=== PATIENT | female | born 1930 | race Caucasian/White ===

== ENCOUNTER 2018-06-25 09:08 | Inpatient (IN) ==
[2018-06-25] MEDS ORDERED: 0.9 % SODIUM CHLORIDE 1,000 ML IV ONE (09:40)
[2018-06-25] MEDS ORDERED: ACETAMINOPHEN 325 MG TABLET PO ONE (09:44)
--- NOTE | 2018-06-25 09:53 | Emergency Department Note ---
General Adult HPI - General Chief complaint: Weakness Stated complaint: weakness, UTI Time Seen by Provider: 06/25/18 09:36 Source: family Mode of arrival: wheelchair - History of Present Illness HPI Narrative: This patient was diagnosed yesterday in the minor care clinic with a UTI and started on Cipro. However today she has a fever and is confused and very weak and having difficulty walking on her own according to family. She did take her Cipro this morning. She denies cough shortness of breath chest pain abdominal pain nausea vomiting diarrhea. - Related Data Home Medications Medication Instructions Recorded Confirmed acetaminophen ER 650 mg 650 mg PO Q8H PRN tab 03/10/18 06/25/18 tablet,extended release allopurinol 100 mg tablet 100 mg PO QDAY 03/10/18 06/25/18 amlodipine 5 mg tablet 5 mg PO QDAY 03/10/18 06/25/18 aspirin 81 mg tablet,delayed 81 mg PO QDAY 03/10/18 06/25/18 release atorvastatin 20 mg tablet 20 mg PO QDAY 03/10/18 06/25/18 dorzolamide 22.3 mg-timolol 6.8 1 drp OPHTHALMIC BID 03/10/18 06/25/18 mg/mL eye drops [id number] C-Mn 500 cap PO 03/10/18 06/24/18 mg-400 mg capsule latanoprost 0.005 % eye drops 1 drp OPHTHALMIC QPM 03/10/18 06/25/18 losartan 50 mg tablet 50 mg PO BID tab 03/10/18 06/25/18 mirtazapine 15 mg tablet 30 mg PO QHS tab 03/10/18 06/25/18 multivitamin tablet 1 tab PO QDAY 03/10/18 06/25/18 nortriptyline 10 mg capsule 10 mg PO QHS 03/10/18 06/25/18 omeprazole magnesium 20 mg 20 mg PO QDAY 03/10/18 06/25/18 tablet,delayed release propranolol ER 60 mg capsule,24 120 mg PO QAM cap 03/10/18 06/25/18 hr,extended release furosemide 20 mg tablet 20 mg PO QDAY tab 03/11/18 06/25/18 triamcinolone acetonide 0.1 % 1 applic TOPICAL BID PRN 03/11/18 06/25/18 topical ointment Previous Rx's Medication Instructions Recorded ciprofloxacin 250 mg tablet 250 mg PO Q12H 7 Days #14 tab 06/24/18 Allergies Allergy/AdvReac Type Severity Reaction Status Date / Time lohexol Allergy Severe Unknown Uncoded 06/24/18 10:47 diyclomine Allergy Unknown Unknown Uncoded 06/24/18 10:47 Review of Systems All systems ED: reviewed and negative except as stated. Past Medical History - Past Medical History [facility] Narrative: Medical History (Last Reviewed 06/24/18 @ 11:23 by Janeth Quick DO) Dermatitis (Chronic) PITTMAN (dyspnea on exertion) (Chronic) Dependent edema (Chronic) Primary open angle glaucoma of both eyes, mild stage (Chronic) Combined form of age-related cataract, left eye (Chronic) Nuclear sclerotic cataract of right eye (Chronic) Chest pain, unspecified (Chronic) Malignant melanoma of arm (Chronic) Urge urinary incontinence (Chronic) Recurrent major depressive disorder (Chronic) Malignant melanoma of skin (Chronic) Osteopenia (Chronic) Osteoarthritis (Chronic) Impaired fasting glucose (Chronic) Hyperlipidemia, unspecified (Chronic) Essential hypertension (Chronic) Degenerative arthritis of spine (Chronic) Cognitive impairment (Chronic) Benign essential tremor (Chronic) Stomach ulcer (Chronic) Osteoporosis (Chronic) Chronic kidney disease, stage 4 (severe) (Chronic) Joint pain (Chronic) Insomnia (Chronic) High cholesterol (Chronic) High blood pressure (Chronic) Heart trouble (Chronic) Gout (Chronic) Depression (Chronic) Skin cancer (Chronic) Arthritis (Chronic) Anxiety (Chronic) Acid reflux (Chronic) H/O: hysterectomy (Chronic) Past Surgical History (Last Reviewed 04/24/18 @ 11:53 by Kelsey Thakur PA-C) History of surgery on arm (Chronic) No pertinent past surgical history (Chronic) Family History (Last Reviewed 04/24/18 @ 11:53 by Kelsey Thakur PA-C) Other No pertinent family history - Social History smoking status: Never smoker Physical Exam Limitations: no limitations General appearance: alert Head: atraumatic Eye: Present: normal appearance ENT: normal exam Neck: Present: normal inspection Chest: Present: normal inspection Respiratory: Present: normal lung sounds bilaterally Cardiovascular: Present: regular rate, normal rhythm, normal heart sounds Abdominal: Present: soft. Absent: distention, tenderness Neurological: Present: alert Psychiatric: Present: normal affect Skin: Present: warm, dry Course Vital Signs Temperature 101.1 F H 06/25/18 09:09 Pulse Rate 92 H 06/25/18 09:09 Blood Pressure 118/71 06/25/18 09:09 Pulse Oximetry (%) 92 06/25/18 09:09 Temperature 99.0 F 06/25/18 10:54 Pulse Rate 83 06/25/18 10:05 Respiratory Rate 21 06/25/18 11:47 Blood Pressure 127/59 06/25/18 11:47 Pulse Oximetry (%) 93 06/25/18 10:05 Medical Decision Making - MDM Narrative Medical decision making narrative: I discussed this case with the hospitalist and because of the confusion and weakness the patient will be admitted observation to the hospital. - Lab Data Lab results reviewed: Yes I reviewed the patient's lab results. Result diagrams: 06/25/18 09:51 06/25/18 09:51 Lab Results 06/25/18 06/25/18 06/25/18 Range/Units 09:50 09:51 09:51 WBC 10.4 (4.5-11.0) K/mcL RBC 3.66 L (4.00-5.20) M/mcL Hgb 11.6 L (12.0-15.0) g/dL Hct 34.7 L (36.0-48.0) % MCV 94.8 (80.0-100.0) fL MCH 31.7 (26.0-34.0) pg MCHC 33.4 (31.0-36.0) g/dL RDW 12.4 (11.5-14.5) % Plt Count 236 (140-440) K/mcL MPV 8.4 (7.4-10.4) fL Gran % 88.3 H (38.0-78.0) % Lymph % (Auto) 4.9 L (15.5-49.0) % Clark % (Auto) 6.6 (1.0-12.0) % Eos % (Auto) 0 (0.0-7.0) % Baso % (Auto) 0.2 (0.0-2.0) % Gran # 9.2 H (1.8-8.0) K/mcL Lymph # (Auto) 0.5 L (1.5-4.8) K/mcL Clark # (Auto) 0.7 (0.1-0.9) K/mcL Eos # (Auto) 0 (0.0-0.7) K/mcL Baso # (Auto) 0 (0.0-0.3) K/mcL VBG Lactic Acid (0.5-2.0) mmol/L Sodium 140 (133-145) mmol/L Potassium 3.6 (3.3-5.1) mmol/L Chloride 106 (96-108) mmol/L Carbon Dioxide 22 (22-30) mmol/L Anion Gap 12.0 (8-16) BUN 26 H (8-23) mg/dl Creatinine 1.3 H (0.6-1.1) mg/dl GFR Calculation 36 Glucose 138 H (70-105) mg/dL Calcium 9.3 (8.6-10.4) mg/dl Total Bilirubin 0.4 (0.0-1.0) mg/dL AST 31 (0-37) U/l ALT 21 (0-40) U/l Alkaline Phosphatase 107 (39-117) U/L C-Reactive Protein 10.5 H (0.0-0.8) mg/dl Total Protein 7.0 (5.9-8.4) gm/dL Albumin 3.6 (3.2-5.2) gm/dL Globulin 3.4 (2.2-3.7) gm/dL Albumin/Globulin Ratio 1.1 (1.0-2.3) Procalcitonin 1.20 (<0.10) ng/mL Urine Color Urine Appearance Urine pH (5.0-9.0) Ur Specific [place] (1.000-1.035) Urine Protein (NEG) mg/dL Urine Glucose (UA) (NEG) mg/dL Urine Ketones (NEG) mg/dL Urine Occult Blood (<0.03) mg/dL Urine Nitrate (NEG) Urine Bilirubin (NEG) mg/dL Urine Urobilinogen (NEG) mg/dL Ur Leukocyte Esterase (NEG) /uL Urine RBC (0-1) /hpf Urine WBC (0-4) /hpf Ur Squamous Epith Cells (0-4) /hpf Urine Bacteria (0) /hpf Ur Culture Indicated? 06/25/18 06/25/18 Range/Units 09:51 09:51 WBC (4.5-11.0) K/mcL RBC (4.00-5.20) M/mcL Hgb (12.0-15.0) g/dL Hct (36.0-48.0) % MCV (80.0-100.0) fL MCH (26.0-34.0) pg MCHC (31.0-36.0) g/dL RDW (11.5-14.5) % Plt Count (140-440) K/mcL MPV (7.4-10.4) fL Gran % (38.0-78.0) % Lymph % (Auto) (15.5-49.0) % Clark % (Auto) (1.0-12.0) % Eos % (Auto) (0.0-7.0) % Baso % (Auto) (0.0-2.0) % Gran # (1.8-8.0) K/mcL Lymph # (Auto) (1.5-4.8) K/mcL Clark # (Auto) (0.1-0.9) K/mcL Eos # (Auto) (0.0-0.7) K/mcL Baso # (Auto) (0.0-0.3) K/mcL VBG Lactic Acid 1.3 (0.5-2.0) mmol/L Sodium (133-145) mmol/L Potassium (3.3-5.1) mmol/L Chloride (96-108) mmol/L Carbon Dioxide (22-30) mmol/L Anion Gap (8-16) BUN (8-23) mg/dl Creatinine (0.6-1.1) mg/dl GFR Calculation Glucose (70-105) mg/dL Calcium (8.6-10.4) mg/dl Total Bilirubin (0.0-1.0) mg/dL AST (0-37) U/l ALT (0-40) U/l Alkaline Phosphatase (39-117) U/L C-Reactive Protein (0.0-0.8) mg/dl Total Protein (5.9-8.4) gm/dL Albumin (3.2-5.2) gm/dL Globulin (2.2-3.7) gm/dL Albumin/Globulin Ratio (1.0-2.3) Procalcitonin (<0.10) ng/mL Urine Color Yellow Urine Appearance Clear Urine pH 5.0 (5.0-9.0) Ur Specific [place] 1.015 (1.000-1.035) Urine Protein Neg (NEG) mg/dL Urine Glucose (UA) Negative (NEG) mg/dL Urine Ketones Neg (NEG) mg/dL Urine Occult Blood Neg (<0.03) mg/dL Urine Nitrate Neg (NEG) Urine Bilirubin Neg (NEG) mg/dL Urine Urobilinogen Neg (NEG) mg/dL Ur Leukocyte Esterase 25 A (NEG) /uL Urine RBC 2 H (0-1) /hpf Urine WBC 34 H (0-4) /hpf Ur Squamous Epith Cells < 1 (0-4) /hpf Urine Bacteria 0 (0) /hpf Ur Culture Indicated? Yes - Radiology Data Radiology results reviewed: Yes I reviewed the patient's radiology results. Disposition Pt seen by [facility]/PA only: No Clinical Impression: UTI (urinary tract infection) Disposition: Xfer As Outpt/Obs ([facility]) Condition: Good Referrals: Kelsey Thakur PA-C [Primary Care Provider] - Time of Disposition: 12:27
--- NOTE | 2018-06-25 09:59 | XRay Report ---
INDICATION: Dyspnea TECHNIQUE: AP chest x-ray,portable upright COMPARISON: None FINDINGS:Mildly elevated right hemidiaphragm. Lungs are negative. No parenchymal infiltrate or mass. No focal abnormality. Heart size and vascularity are normal. Jyotsna and mediastinum are negative. No pleural fluid IMPRESSION: 1. Mildly elevated right hemidiaphragm 2. Otherwise negative AP portable chest x-ray Interpreted and Authenticated by: Jeff Prieto 06/25/18
[2018-06-25 10:17] LABS: Basophils # (Auto) 0 K/mcL (0.0-0.3); Basophils % (Auto) 0.2 % (0.0-2.0); Eosinophils # (Auto) 0 K/mcL (0.0-0.7); Eosinophils % (Auto) 0 % (0.0-7.0); Granulocytes % (Auto) 88.3 % (38.0-78.0); Lymphocytes # (Auto) 0.5 K/mcL (1.5-4.8); Lymphocytes % (Auto) 4.9 % (15.5-49.0); Mean Cell Volume 94.8 fL (80.0-100.0); Mean Corpuscular HGB Conc 33.4 g/dL (31.0-36.0); Monocytes # (Auto) 0.7 K/mcL (0.1-0.9); Monocytes % (Auto) 6.6 % (1.0-12.0); Platelet Count 236 K/mcL (140-440); RBC 3.66 M/mcL (4.00-5.20); Red Cell Distribution Width 12.4 % (11.5-14.5)
[2018-06-25 10:23] LABS: Appearance,Urine CLEAR; Bacteria,Urine 0 /hpf (0); Bilirubin,Urine NEG (NEG); Color,Urine YELLOW; Glucose,Urine (UA) NEGATIVE (NEG); Leukocyte Esterase,Urine 25 /uL (NEG); Protein,Urine NEG (NEG); Specific Gravity,Urine 1.015 (1.000-1.035); Urine Blood NEG mg/dL (<0.03); Urine RBC 2 /hpf (0-1); Urine Squamous Epithelial Cell < 1 /hpf (0-4); Urine WBC 34 /hpf (0-4); Urobilinogen,Urine NEG (NEG)
[2018-06-25 10:36] LABS: ALT/SGPT 21 U/l (0-40); Albumin 3.6 gm/dL (3.2-5.2); Albumin/Globulin Ratio 1.1 (1.0-2.3); Alkaline Phosphatase 107 U/L (39-117); Blood Urea Nitrogen 26 mg/dl (8-23); C-Reactive Protein 10.5 mg/dl (0.0-0.8)
--- NOTE | 2018-06-25 12:16 | Cat Scan Report ---
CLINICAL INFORMATION: Confusion COMPARISON: None. TECHNIQUE: Axial noncontrast-enhanced images through the brain. FINDINGS: No acute intracranial hemorrhage. No intra-axial hematoma. No localized mass effect. No midline shift. No acute abnormality. There is age-appropriate cerebral atrophy. There is white matter abnormality consistent with small vessel ischemic change. Brainstem and cerebellum are negative. No extra-axial, intracranial abnormality. No subdural hematoma. No subarachnoid hemorrhage. Basilar cisterns are normal. No hyperdense middle cerebral artery sign. No calvarial fracture. No lytic lesion. Temporal bones are negative IMPRESSION: 1. Age-appropriate cerebral atrophy. White matter abnormality consistent with small vessel ischemic change 2. No acute abnormality The exam was performed using radiation dose optimization techniques including, but not limited to, automated exposure control, adjustment of the mA and/or kV according to patient size and use of iterative reconstruction technique. Interpreted and Authenticated by: Jeff Prieto 06/25/18
[2018-06-25] MEDS ORDERED: LACTATED RINGERS 1,000 ML IV SCH ×2 (12:30→14:14)
--- NOTE | 2018-06-25 13:29 | Internal Med History&Physical ---
Medical - H&P: [facility] Patient information: Note initiated : 06/25/18 at 1:26 pm Service Date, if different from initiated Date: [] Patient: Sandra Valle a 87 y/o F admitted on for Weakness, UTI. Chief Complaint: [] History of present illness: Ms. Valle is a 87 year old F Who presents after fevers chills confusion. She was seen at [facility] yesterday because she had increasing confusion more than usual and weak and she was diagnosed with a urinary tract infection and was given Cipro upon discharge. She took several dose of Cipro. Today she brought in the ER because she seemed very shaky and was unable to move around without assistance and to develop a fever. In the ER she is found to be febrile with urine showed leukocyte esterase and WBCs. She had an elevated pro-calcitonin. Lactate was within normal limits. And renal function worse than normal. CT brain was unremarkable. Sounds like she has dementia per history obtained from family, son-in-law. And her daughter is the POA. Family reports continued and progressive decline in memory and cognition. She complains of weakness and chills, no chest pain shortness of breath abdominal pain or diarrhea. Review of Systems: Pertinent positives as above. Denies headache/fever/nausea/vomiting/chest or abdominal pain/cough/dyspnea/diarrhea. Many 10 point review of systems reviewed negative Medical - H&P: [facility] Medical history: Medical History (Last Reviewed 06/24/18 @ 11:23 by Janeth Quick DO) Dermatitis (Chronic) PITTMAN (dyspnea on exertion) (Chronic) Dependent edema (Chronic) Primary open angle glaucoma of both eyes, mild stage (Chronic) Combined form of age-related cataract, left eye (Chronic) Nuclear sclerotic cataract of right eye (Chronic) Chest pain, unspecified (Chronic) Malignant melanoma of arm (Chronic) Urge urinary incontinence (Chronic) Recurrent major depressive disorder (Chronic) Malignant melanoma of skin (Chronic) Osteopenia (Chronic) Osteoarthritis (Chronic) Impaired fasting glucose (Chronic) Hyperlipidemia, unspecified (Chronic) Essential hypertension (Chronic) Degenerative arthritis of spine (Chronic) Cognitive impairment (Chronic) Benign essential tremor (Chronic) Stomach ulcer (Chronic) Osteoporosis (Chronic) Chronic kidney disease, stage 4 (severe) (Chronic) Joint pain (Chronic) Insomnia (Chronic) High cholesterol (Chronic) High blood pressure (Chronic) Heart trouble (Chronic) Gout (Chronic) Depression (Chronic) Skin cancer (Chronic) Arthritis (Chronic) Anxiety (Chronic) Acid reflux (Chronic) H/O: hysterectomy (Chronic) Past Surgical History (Last Reviewed 04/24/18 @ 11:53 by Kelsey Thakur PA-C) History of surgery on arm (Chronic) No pertinent past surgical history (Chronic) Family History (Last Reviewed 04/24/18 @ 11:53 by Kelsey Thakur PA-C) Other Father had cancer mother history unknown Social History (Last Updated 06/24/18 @ 13:06 by Janeth Quick DO) Denies alcohol use drinks alcohol rarely embolus with a walk[facility] family has been looking at getting her ov er to the assisted living side Medical - H&P: Meds Home Medications Medication Instructions Recorded Confirmed Type acetaminophen ER 650 mg 650 mg PO Q8H PRN tab 03/10/18 06/25/18 History tablet,extended release allopurinol 100 mg tablet 100 mg PO QDAY 03/10/18 06/25/18 History amlodipine 5 mg tablet 5 mg PO QDAY 03/10/18 06/25/18 History aspirin 81 mg tablet,delayed 81 mg PO QDAY 03/10/18 06/25/18 History release atorvastatin 20 mg tablet 20 mg PO QDAY 03/10/18 06/25/18 History dorzolamide 22.3 mg-timolol 6.8 1 drp OPHTHALMIC BID 03/10/18 06/25/18 History mg/mL eye drops [id number] C-Mn 500 cap PO 03/10/18 06/24/18 History mg-400 mg capsule latanoprost 0.005 % eye drops 1 drp OPHTHALMIC QPM 03/10/18 06/25/18 History losartan 50 mg tablet 50 mg PO BID tab 03/10/18 06/25/18 History mirtazapine 15 mg tablet 30 mg PO QHS tab 03/10/18 06/25/18 History multivitamin tablet 1 tab PO QDAY 03/10/18 06/25/18 History nortriptyline 10 mg capsule 10 mg PO QHS 03/10/18 06/25/18 History omeprazole magnesium 20 mg 20 mg PO QDAY 03/10/18 06/25/18 History tablet,delayed release propranolol ER 60 mg capsule,24 120 mg PO QAM cap 03/10/18 06/25/18 History hr,extended release furosemide 20 mg tablet 20 mg PO QDAY tab 03/11/18 06/25/18 History triamcinolone acetonide 0.1 % 1 applic TOPICAL BID PRN 03/11/18 06/25/18 History topical ointment ciprofloxacin 250 mg tablet 250 mg PO Q12H 7 Days #14 tab 06/24/18 06/25/18 Rx Allergies Allergy/AdvReac Type Severity Reaction Status Date / Time lohexol Allergy Severe Unknown Uncoded 06/24/18 10:47 diyclomine Allergy Unknown Unknown Uncoded 06/24/18 10:47 Medical - H&P: Exam - Constitutional Vitals: Temp Pulse Resp BP Pulse Ox 98.2 F 66 19 102/54 91 06/25/18 13:10 06/25/18 13:01 06/25/18 13:01 06/25/18 13:01 06/25/18 13:01 Exam: General: Alert, Awake, No acute Distress, obese Eyes/N/T: EOMI, PEERL, DMM Head/Neck: neck supple, normocephalic atraumatic CV: RRR, No murmurs, normal s1/s2 Pulm: Clear b/l, no wheezing/rhonchi/rales Abd: soft, nontender, +BS x4 Ext: no clubbing/cyanosis/edema Neuro: Alert, no focal deficits, moves all extremities, CN 2-12 grossly intact, symmetrical strength b/l upper/lower, sensations intact b/l upper/lower Skin: warm/dry Medical - H&P: Reslt - Labs CBC & Chem 7: 06/25/18 09:51 06/25/18 09:51 Labs: Short CBC 06/25/18 Range/Units 09:51 WBC 10.4 (4.5-11.0) K/mcL Hgb 11.6 L (12.0-15.0) g/dL Hct 34.7 L (36.0-48.0) % Plt Count 236 (140-440) K/mcL BMP 06/25/18 09:51 Sodium 140 Potassium 3.6 Chloride 106 Carbon Dioxide 22 BUN 26 H Creatinine 1.3 H Glucose 138 H Calcium 9.3 Liver Function 06/25/18 Range/Units 09:51 Total Bilirubin 0.4 (0.0-1.0) mg/dL AST 31 (0-37) U/l ALT 21 (0-40) U/l Alkaline Phosphatase 107 (39-117) U/L Albumin 3.6 (3.2-5.2) gm/dL Urine 06/25/18 Range/Units 09:51 Urine Color Yellow Urine Appearance Clear Urine pH 5.0 (5.0-9.0) Ur Specific [place] 1.015 (1.000-1.035) Urine Protein Neg (NEG) mg/dL Urine Glucose (UA) Negative (NEG) mg/dL - Impressions Chest x-ray unremarkable CT brain with cerebral atrophy and small vessel ischemic change Medical - H&P: A/P - Narrative A/P Narrative: A: *UTI: *Sepsis: *QUEENIE on CKD III: Secondary to above *Anemia of CD: *HTN/HLD: *Dementia: *essential tremor *GERD/PUD *Depression/Anxiety * P: -IVF's -rocephin, pending UC -f/u renal fxn, monitor UOP -hold losartan and lasix for queenie -cont norvasc - -pt/ot -ppx: heparin/pepcid
[2018-06-25] MEDS ORDERED: ONDANSETRON 4 MG/2 ML VIAL IV PRN (14:14)
[2018-06-25] MEDS ORDERED: cefTRIAXone 1 GM in DEXTROSE 5% IN WATER 50 ML IV SCH (14:14)
[2018-06-25] MEDS ORDERED: NON FORMULARY MEDICATION 1 DOSE MISCELL (Acetaminophen [Acetaminophen Er] 650 MG) PO PRN (14:14)
[2018-06-25] MEDS ORDERED: ACETAMINOPHEN 325 MG TABLET PO PRN (14:14)
[2018-06-25] MEDS: cefTRIAXone 1 GM VIAL IV SCH (16:38)
[2018-06-25] MEDS: 0.9 % SODIUM CHLORIDE 10 ML SYRINGE IV SCH ×2 (16:38→22:31)
[2018-06-25] MEDS ORDERED: diphenhydrAMINE 25 MG CAPSULE PO SCH (21:00)
[2018-06-25] MEDS: HEPARIN 5,000 UNIT/ML VIAL SQ SCH (22:21)
[2018-06-25] MEDS: NORTRIPTYLINE 10 MG CAPSULE PO SCH (22:22)
[2018-06-25] MEDS: DOCUSATE SODIUM 100 MG CAPSULE PO SCH (22:22)
[2018-06-25] MEDS: MIRTAZAPINE 15 MG TABLET PO SCH (22:22)
[2018-06-25] MEDS: LATANOPROST OPHTH DROPS 2.5ML BOTTLE OU SCH (22:26)
[2018-06-25] MEDS: Dorzolamide Hcl/Timolol Maleat [Cosopt Eye Drops] OU SCH (22:30)
[2018-06-26 05:48] LABS: Basophils # (Auto) 0 K/mcL (0.0-0.3); Basophils % (Auto) 0.2 % (0.0-2.0); Eosinophils # (Auto) 0.1 K/mcL (0.0-0.7); Eosinophils % (Auto) 0.8 % (0.0-7.0); Granulocytes % (Auto) 76.3 % (38.0-78.0); Lymphocytes # (Auto) 1.1 K/mcL (1.5-4.8); Lymphocytes % (Auto) 12.4 % (15.5-49.0); Mean Cell Volume 94.5 fL (80.0-100.0); Mean Corpuscular HGB Conc 34.4 g/dL (31.0-36.0); Monocytes # (Auto) 0.9 K/mcL (0.1-0.9); Monocytes % (Auto) 10.3 % (1.0-12.0); Platelet Count 217 K/mcL (140-440); Red Cell Distribution Width 12.7 % (11.5-14.5)
[2018-06-26 06:18] LABS: ALT/SGPT 20 U/l (0-40); Albumin 3.1 gm/dL (3.2-5.2); Albumin/Globulin Ratio 1.1 (1.0-2.3); Alkaline Phosphatase 88 U/L (39-117); Bilirubin,Direct < 0.2 mg/dL (0.0-0.3); Blood Urea Nitrogen 18 mg/dl (8-23); Gamma Glutamyl Transpeptidase 50 U/L (5-36); Uric Acid 5.4 mg/dL (2.5-8.0)
[2018-06-26] MEDS ORDERED: LABETALOL HCL 20 MG/4 ML SYRINGE IV PRN (06:52)
--- NOTE | 2018-06-26 06:55 | Internal Med Progress Note ---
Medical - PN: Subj Patient information: Note initiated : 06/26/18 at 6:49 am Service Date, if different from initiated Date: [] Patient: Sandra Valle a 87 y/o F admitted on 06/25/18 for Weakness, UTI. Chief Complaint: [] Interval history: Ms. Valle is a 87 year old F Who presents after fevers chills confusion. She was seen at [facility] yesterday because she had increasing confusion more than usual and weak and she was diagnosed with a urinary tract infection and was given Cipro upon discharge. She took several dose of Cipro. Today she brought in the ER because she seemed very shaky and was unable to move around without assistance and to develop a fever. In the ER she is found to be febrile with urine showed leukocyte esterase and WBCs. She had an elevated pro-calcitonin. Lactate was within normal limits. And renal function worse than normal. CT brain was unremarkable. Sounds like she has dementia per history obtained from family, son-in-law. And her daughter is the POA. Family reports continued and progressive decline in memory and cognition. She complains of weakness and chills, no chest pain shortness of breath abdominal pain or diarrhea. 06/26 States she slept well. No new complaints no dysuria. No overnight events. Review of Systems: denies headache/fever/chills/nausea/vomiting/chest or abdominal pain/cough/dyspnea/diarrhea. Otherwise see above. - Constitutional Vitals: Vital Signs Temp Pulse Resp BP Pulse Ox 99.7 F H 90 24 H 155/81 93 06/26/18 03:58 06/26/18 03:58 06/26/18 03:58 06/26/18 03:58 06/26/18 03:58 Period Temp Pulse Resp BP Sys/Hankins Pulse Ox Last 24 Hr 97.3 F-101.1 F 65-92 14-31 91-164/50-100 91-96 Intake and Output 06/25/18 06/26/18 06/26/18 21:59 05:59 13:59 Intake Total 240 300 Output Total 650 550 Balance -410 300 -550 Weight 82.327 kg Intake & Output: Intake & Output 06/25/18 06/26/18 06/26/18 21:59 05:59 13:59 Intake Total 240 300 Output Total 650 550 Balance -410 300 -550 Weight 82.327 kg Intake: Oral 240 300 Output: Void Amount 650 550 Other: Urine Appearance Clear Clear Urine Color Light Elise Straw Urine Odor Strong Strong Exam: General: Alert, Awake, No acute Distress, obese Eyes/N/T: EOMI, Head/Neck: neck supple, CV: RRR, No murmurs, Pulm: Clear b/l, no wheezing/rhonchi/rales Abd: soft, nontender, +BS x4 Ext: no clubbing/cyanosis/edema Neuro: A&Ox3 today, no focal deficits, moves all extremities, Skin: warm/dry Medical - PN: Obj Da - Labs CBC & Chem 7: 06/26/18 04:40 06/26/18 04:40 Labs: Abnormal Lab Results 06/26/18 06/26/18 06/25/18 04:40 04:40 09:51 RBC 3.00 L Hgb 9.8 L Hct 28.4 L Gran % Lymph % (Auto) 12.4 L Gran # Lymph # (Auto) 1.1 L BUN Creatinine Glucose 106 H Phosphorus 2.3 L GGT 50 H C-Reactive Protein Albumin 3.1 L Triglycerides 263 H Ur Leukocyte Esterase 25 A Urine RBC 2 H Urine WBC 34 H 06/25/18 06/25/18 09:51 09:51 RBC 3.66 L Hgb 11.6 L Hct 34.7 L Gran % 88.3 H Lymph % (Auto) 4.9 L Gran # 9.2 H Lymph # (Auto) 0.5 L BUN 26 H Creatinine 1.3 H Glucose 138 H Phosphorus GGT C-Reactive Protein 10.5 H Albumin Triglycerides Ur Leukocyte Esterase Urine RBC Urine WBC Meds: Medications Acetaminophen (Tylenol) 650 mg PO Q6HP PRN PRN Reason: PAIN/FEVER > 101 Allopurinol (Zyloprim) 100 mg PO QDAY [facility] Amlodipine Besylate (Norvasc) 5 mg PO QDAY [facility] Aspirin (Aspirin) 81 mg PO DAILY [facility] Atorvastatin Calcium (Lipitor) 20 mg PO QDAY [facility] Ceftriaxone Sodium (Rocephin) 1 gm IV DAILY [facility] Last Admin: 06/25/18 16:38 Dose: 1 gm Documented by: Docusate Sodium (Colace) 100 mg PO BID [facility] Last Admin: 06/25/18 22:22 Dose: 100 mg Documented by: Heparin Sodium (Porcine) (Heparin) 5,000 unit SQ Q12 [facility] Last Admin: 06/25/18 22:21 Dose: 5,000 unit Documented by: Latanoprost (Xalatan Ophth Drops) 1 gtt OU HS [facility] Last Admin: 06/25/18 22:26 Dose: 1 gtt Documented by: Mirtazapine (Remeron) 30 mg PO QHS [facility] Last Admin: 06/25/18 22:22 Dose: 30 mg Documented by: Nortriptyline HCl (Pamelor) 10 mg PO QHS [facility] Last Admin: 06/25/18 22:22 Dose: 10 mg Documented by: Ondansetron HCl (Zofran) 4 mg IV Q6HP PRN PRN Reason: Nausea And Vomiting Dorzolamide Hcl/Timolol Maleat [ Cosopt Eye Drops] 1 dose OU BID [facility] Last Admin: 06/25/18 22:30 Dose: 1 dose Documented by: Propranolol HCl (Inderal La) 120 mg PO QAM [facility] Sodium Chloride (Saline Flush) 10 ml IV Q8 [facility] Last Admin: 06/25/18 22:31 Dose: Not Given Documented by: Medical - PN: A/P - Time Spent With Patient Total time spent is greater than 50% in coordination of care (as documented) at patient's floor/unit and/or counseling patient: - Narrative A/P Narrative: A: *UTI (GNB): *Sepsis: improving - *Encephalopathy's: Secondary to above superimposed on underlying dementia -improving *QUEENIE on CKD III: Secondary to above -Improved *Anemia of CD: *HTN/HLD: *Dementia: *Essential tremor *GERD/PUD *Depression/Anxiety * P: -IVF's d/c -rocephin, pending UC/BC -f/u PCT -hold losartan and lasix for queenie , prn labetolol -cont norvasc - -pt/ot -ppx: heparin/pepcid Medical - PN: Qual - VTE Deep Vein Thrombosis/Pulmonary Embolism Present on Admission: No
[2018-06-26] MEDS: 0.9 % SODIUM CHLORIDE 10 ML SYRINGE IV SCH ×2 (08:29→15:46)
[2018-06-26] MEDS: ALLOPURINOL 100 MG TABLET PO SCH (08:30)
[2018-06-26] MEDS: DOCUSATE SODIUM 100 MG CAPSULE PO SCH ×2 (08:30→23:10)
[2018-06-26] MEDS: ATORVASTATIN 20 MG TABLET PO SCH (08:30)
[2018-06-26] MEDS: PROPRANOLOL 60 MG CAP.XL.24H PO SCH (08:30)
[2018-06-26] MEDS: HEPARIN 5,000 UNIT/ML VIAL SQ SCH (08:30)
[2018-06-26] MEDS: amLODIPine 5 MG TABLET PO SCH (08:30)
[2018-06-26] MEDS: ASPIRIN 81 MG TAB.CHEW PO SCH (08:30)
[2018-06-26] MEDS: cefTRIAXone 1 GM VIAL IV SCH (08:31)
[2018-06-26] MEDS: Dorzolamide Hcl/Timolol Maleat [Cosopt Eye Drops] OU SCH ×2 (09:28→22:59)
[2018-06-26] MEDS: MIRTAZAPINE 15 MG TABLET PO SCH (23:10)
[2018-06-26] MEDS: NORTRIPTYLINE 10 MG CAPSULE PO SCH (23:10)
[2018-06-26] MEDS: LATANOPROST OPHTH DROPS 2.5ML BOTTLE OU SCH (23:10)
[2018-06-27] MEDS: 0.9 % SODIUM CHLORIDE 10 ML SYRINGE IV SCH ×2 (00:14→08:50)
[2018-06-27] MEDS: HEPARIN 5,000 UNIT/ML VIAL SQ SCH ×2 (00:14→08:50)
[2018-06-27 05:48] LABS: Basophils # (Auto) 0 K/mcL (0.0-0.3); Basophils % (Auto) 0.4 % (0.0-2.0); Eosinophils # (Auto) 0.3 K/mcL (0.0-0.7); Eosinophils % (Auto) 4.9 % (0.0-7.0); Granulocytes % (Auto) 61.9 % (38.0-78.0); Lymphocytes # (Auto) 1.4 K/mcL (1.5-4.8); Lymphocytes % (Auto) 21.3 % (15.5-49.0); Monocytes # (Auto) 0.8 K/mcL (0.1-0.9); Monocytes % (Auto) 11.5 % (1.0-12.0); Platelet Count 250 K/mcL (140-440); RBC 3.27 M/mcL (4.00-5.20); Red Cell Distribution Width 12.7 % (11.5-14.5)
[2018-06-27 06:10] LABS: ALT/SGPT 30 U/l (0-40); Albumin 3.2 gm/dL (3.2-5.2); Albumin/Globulin Ratio 0.9 (1.0-2.3); Alkaline Phosphatase 108 U/L (39-117); Bilirubin,Direct < 0.2 mg/dL (0.0-0.3); Blood Urea Nitrogen 17 mg/dl (8-23); Gamma Glutamyl Transpeptidase 68 U/L (5-36); Uric Acid 5.5 mg/dL (2.5-8.0)
[2018-06-27] MEDS: ATORVASTATIN 20 MG TABLET PO SCH (08:51)
[2018-06-27] MEDS: cefTRIAXone 1 GM VIAL IV SCH (08:51)
[2018-06-27] MEDS: ALLOPURINOL 100 MG TABLET PO SCH (08:51)
[2018-06-27] MEDS: amLODIPine 5 MG TABLET PO SCH (08:51)
[2018-06-27] MEDS: Dorzolamide Hcl/Timolol Maleat [Cosopt Eye Drops] OU SCH (08:51)
[2018-06-27] MEDS: PROPRANOLOL 60 MG CAP.XL.24H PO SCH (08:51)
[2018-06-27] MEDS: ASPIRIN 81 MG TAB.CHEW PO SCH (08:52)
[2018-06-27] MEDS: DOCUSATE SODIUM 100 MG CAPSULE PO SCH (08:52)
--- NOTE | 2018-06-27 11:26 | Discharge Summary ---
Medical - DS: Prov Patient information: Note initiated : 06/27/18 at 11:23 am Service Date, if different from initiated Date: [] Patient: Sandra Valle 87 y/o F admitted on 06/25/18 for Weakness, UTI. Chief Complaint: [] Date of admission: 06/25/18 14:00 Discharge date: 06/27/18 Primary care physician: Kelsey Thakur PA-C Consults: 06/25/18 Consult to Physician [CONS] Stat Comment: Consulting Provider: Armand Stewart Reason For Exam: Physician to Consult Discharging clinician: [facility] Medical - DS: Meds - Discharge Medications Prescriptions: Cephalexin [Keflex] 500 mg PO BID #10 capsule Active and Home Medications: Home Medications acetaminophen ER 650 mg tablet,extended release 650 mg PO Q8H PRN tab 03/10/18 [History Confirmed 06/25/18 Last Taken 06/25/18] allopurinol 100 mg tablet 100 mg PO QDAY 03/10/18 [History Confirmed 06/25/18 Last Taken 06/25/18] amlodipine 5 mg tablet 5 mg PO QDAY 03/10/18 [History Confirmed 06/25/18 Last Taken Unknown] aspirin 81 mg tablet,delayed release 81 mg PO QDAY 03/10/18 [History Confirmed 06/25/18 Last Taken 06/25/18] atorvastatin 20 mg tablet 20 mg PO QDAY 03/10/18 [History Confirmed 06/25/18 Last Taken 06/25/18] dorzolamide 22.3 mg-timolol 6.8 mg/mL eye drops 1 drp OPHTHALMIC BID 03/10/18 [History Confirmed 06/25/18 Last Taken 06/24/18] latanoprost 0.005 % eye drops 1 drp OPHTHALMIC QPM 03/10/18 [History Confirmed 06/25/18 Last Taken 06/24/18] losartan 50 mg tablet 50 mg PO BID tab 03/10/18 [History Confirmed 06/25/18 Last Taken 06/25/18] mirtazapine 15 mg tablet 30 mg PO QHS tab 03/10/18 [History Confirmed 06/25/18 Last Taken 06/24/18] multivitamin tablet 1 tab PO QDAY 03/10/18 [History Confirmed 06/25/18 Last Taken 06/24/18] nortriptyline 10 mg capsule 10 mg PO QHS 03/10/18 [History Confirmed 06/25/18 Last Taken 06/24/18] omeprazole magnesium 20 mg tablet,delayed release 20 mg PO QDAY 03/10/18 [History Confirmed 06/25/18 Last Taken 06/25/18] propranolol ER 60 mg capsule,24 hr,extended release 120 mg PO QAM cap 03/10/18 [History Confirmed 06/25/18 Last Taken 06/25/18] furosemide 20 mg tablet 20 mg PO QDAY tab 03/11/18 [History Confirmed 06/25/18 Last Taken 06/23/18] triamcinolone acetonide 0.1 % topical ointment 1 applic TOPICAL BID PRN 03/11/18 [History Confirmed 06/25/18 Last Taken Unknown] ciprofloxacin 250 mg tablet 250 mg PO Q12H 7 Days #14 tab 06/24/18 [Rx Confirmed 06/25/18 Last Taken 06/25/18] Medical - DS: Hosp Hospital course: Ms. Valle is a 87 year old F Who presents after fevers chills confusion. She was seen at [facility] yesterday because she had increasing confusion more than usual and weak and she was diagnosed with a urinary tract infection and was given Cipro upon discharge. She took several dose of Cipro. Today she brought in the ER because she seemed very shaky and was unable to move around without assistance and to develop a fever. In the ER she is found to be febrile with urine showed leukocyte esterase and WBCs. She had an elevated pro-calcitonin. Lactate was within normal limits. And renal function worse than normal. CT brain was unremarkable. Sounds like she has dementia per history obtained from family, son-in-law. And her daughter is the POA. Family reports continued and progressive decline in memory and cognition. She complains of weakness and chills, no chest pain shortness of breath abdominal pain or diarrhea. 06/26 States she slept well. No new complaints no dysuria. No overnight events. 06/27 Pt seen examined, doing well, labs stable, no fever, tolerating po diet well, ambulating with help of walker, nearly back to baseline will d/c on oral keflex 500mg bid for another 5 days, to complete a 7 day course she had nicholson sensitive Ecoli in her urine culture. Discharge diagnosis: UTI - Time Spent with Patient Total time spent providing and/or coordinating discharge services: Less than 30 minutes Medical - DS: Exam - Constitutional Vitals: Vital Signs Temp Pulse Resp BP Pulse Ox 06/27/18 07:12 97.8 F 76 14 157/77 95 06/27/18 04:00 97.3 F 78 22 160/83 97 06/27/18 00:30 74 24 H 146/76 06/27/18 00:00 98.6 F 82 20 171/73 95 06/26/18 20:00 97.9 F 72 24 H 133/67 95 06/26/18 19:30 24 H 06/26/18 16:00 98.2 F 69 18 120/71 91 06/26/18 12:00 98.0 F 70 20 117/64 92 Intake and Output 06/26/18 06/27/18 06/27/18 21:59 05:59 13:59 Intake Total 600 200 Output Total 450 1125 Balance 150 -925 Intake: Oral 600 200 Output: Void Amount 450 1125 # of times incontinent of urine 0 Other: Meal Lunch Percent of Meal Consumed 50% Feeding Ability Independent Urine Appearance Clear Cloudy Urine Color Bright Yellow Dark Yellow Urine Odor Normal Strong # Voids 1 Weight 178 lb Additional comments: Constitutional; Afebrile, cooperative, alert, not in distress. Respiratory system: Air Entry equal on both sides, No crackles or wheezing, no rhonchi. CVS- Rate rhythm regular, S1,S2 heard, no gallop, no rub. Abdomen- Soft nontender abdomen, no organomegaly, no tenderness, no guarding or rigidity, [employer]- AOOx2, moving all extremities, no gross focal deficit noted. Medical - DS: Data Labs on day of discharge: Labs from last 24 hours 06/27/18 06/27/18 06/27/18 03:45 03:45 03:45 WBC 6.6 RBC 3.27 L Hgb 10.6 L Hct 31.0 L MCV 95.0 MCH 32.3 MCHC 34.0 RDW 12.7 Plt Count 250 MPV 8.6 Gran % 61.9 Lymph % (Auto) 21.3 [place] % (Auto) 11.5 Eos % (Auto) 4.9 Baso % (Auto) 0.4 Gran # 4.1 Lymph # (Auto) 1.4 L [place] # (Auto) 0.8 Eos # (Auto) 0.3 Baso # (Auto) 0 Sodium 141 Potassium 3.7 Chloride 106 Carbon Dioxide 22 Anion Gap 13.0 BUN 17 Creatinine 0.9 GFR Calculation 57 Glucose 102 Uric Acid 5.5 Calcium 9.4 Phosphorus 3.1 Magnesium 1.8 Total Bilirubin 0.4 Direct Bilirubin < 0.2 GGT 68 H AST 42 H ALT 30 Alkaline Phosphatase 108 Lactate Dehydrogenase 295 H Total Protein 6.6 Albumin 3.2 Globulin 3.4 Albumin/Globulin Ratio 0.9 L Triglycerides 333 H Procalcitonin 0.72 Preliminary micro results at discharge 06/25/18 09:58 Blood Culture - Preliminary Blood 06/25/18 10:05 Blood Culture - Preliminary Blood Medical - DS: A/P - Patient/Caregiver Discharge Instructions Activity: increase activity as tolerated Diet: Regular Diet Additional Instructions: Stop ciprofloxacin Take Cephalexin 500mg bid for another 5 days to complete a 7 day course No other changes made to your chronic home medication list Take all your other home medications as prescribed by your doctor Go to the Er if worsening symptoms chest pain, shortness of breath or any other acute concern. Follow up with PCP in 1 week - Follow up Plan Follow up with: Kelsey Thakur PA-C [Primary Care Provider] - Disposition: Home Health Service Prognosis: Fair Rehab Potential: Fair I certify that the patient requires SNF services: No Overall status at discharge: patient is progressing back to baseline Medical - DS: Qual - VTE Deep Vein Thrombosis/Pulmonary Embolism Present on Admission: No
== END 2018-06-27 15:15 | disposition home health service (06) | DRG 871 ==
LOC: ED 09:08 → MEDSUR 14:00
PROVIDERS: ADMIT Internal Medicine; ATTEND Internal Medicine